=== PATIENT | male | born 1955 | race Caucasian/White ===

== ENCOUNTER 2022-04-29 15:13 | Emergency (ER) | payer OTHER, MEDICAID ==
[~2022-04-29] VITALS: Ht 152.4 cm; Wt 72.6 kg
--- NOTE | 2022-04-29 15:15 | NUR ---
BIBA BLS TO ER BED 12
[2022-04-29 15:19] VITALS: BP 148/64
[2022-04-29 15:56] LABS: BASOPHILS # (AUTO) 0.1 K/uL (0.00-0.22); EOSINOPHILS # (AUTO) 0.2 K/uL (0-0.4); EOSINOPHILS % (AUTO) 3.2 % (0.0-4.0); HEMATOCRIT 39.9 % (36-52); HEMOGLOBIN 13.2 g/dL (12.0-18.0); LYMPHOCYTES # (AUTO) 1.4 K/uL (2.0-11.5); LYMPHOCYTES % (AUTO) 19.5 % (20.5-51.1); MEAN CORPUSCULAR HEMOGLOBIN 32 pg (27-31); MEAN CORPUSCULAR HGB CONC 33 g/dL (33-37); MEAN CORPUSCULAR VOLUME 96.8 fL (80-94); MONOCYTES # (AUTO) 0.5 K/uL (0.8-1.0); MONOCYTES % (AUTO) 7.7 % (1.7-9.3); NEUTROPHILS # (AUTO) 4.8 K/uL (1.8-7.7); NEUTROPHILS % (AUTO) 68.6 % (42.2-75.2); PLATELET COUNT (AUTO) 93 K/uL (140-450); RED BLOOD CELL COUNT(AUTO) 4.12 MIL/uL (4.20-6.10); RED CELL DISTRIBUTION WIDTH 16.8 % (11.6-13.7); WHITE BLOOD COUNT (AUTO) 6.9 K/uL (4.8-10.8)
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
[2022-04-29 17:03] LABS: ALBUMIN 3.8 g/dL (3.4-5.0); ANION GAP 18.4 (8-16); ASPARTATE AMINOTRANSFERASE 42 U/L (15-37); CARBON DIOXIDE 27.1 mmol/L (21-32); CHLORIDE 96 mmol/L (98-107); GFR ARICAN-AMERICAN 7 mL/min (>90); GLUCOSE 156 mg/dL (74-106); POTASSIUM 4.5 mmol/L (3.5-5.1); SODIUM SERUM 137 mmol/L (136-145); TOTAL BILIRUBIN 0.4 mg/dL (0.0-1.0); UREA NITROGEN, BLOOD 44 mg/dL (7-18)
[2022-04-29 17:13] LABS: CREATININE 9.7 mg/dL (0.6-1.3)
[2022-04-29] MEDS ORDERED: LID5T TP (17:25)
[2022-04-29 17:27] VITALS: BP 147/63
--- NOTE | 2022-04-29 17:36 | NUR ---
PT REQUESTING UBER, HOUSE SUP AWARE
--- NOTE | 2022-04-29 17:44 | NUR ---
Patient discharged with v/s stable. Written and verbal after care instructions for lidocaine patches given and explained. Patient alert, oriented and verbalized understanding of instructions. Ambulatory with steady gait. All questions addressed prior to discharge. ID band removed. Patient advised to follow up with PMD. Rx of lidocaine patches given. Patient educated on indication of medication including possible reaction and side effects. Opportunity to ask questions provided and answered.
== END 2022-04-29 17:45 | disposition home or self-care (01) ==
LOC: MED 15:13
DX: S22.080A Wedge compression fracture of T11-T12 vertebra, initial encounter for closed fracture (principal); S00.03XA Contusion of scalp, initial encounter; I12.0 Hypertensive chronic kidney disease with stage 5 chronic kidney disease or end stage renal disease; N18.6 End stage renal disease; Z99.2 Dependence on renal dialysis; Z90.49 Acquired absence of other specified parts of digestive tract; Z79.899 Other long term (current) drug therapy; W01.198A Fall on same level from slipping, tripping and stumbling with subsequent striking against other object, initial encounter; Y92.89 Other specified places as the place of occurrence of the external cause; Y93.89 Activity, other specified; Y99.8 Other external cause status
CPT/HCPCS: 36415; 70450; 71045; 72125; 72131; 80053; 84484; 85025; 93005; 99285; Q0092

== ENCOUNTER 2022-11-09 15:25 | Emergency (ER) | payer OTHER ==
[~2022-11-09] VITALS: Ht 152.4 cm; Wt 77.1 kg
[~2022-11-09 15:25] MED LIST: LID5T TP
[2022-11-09 15:51] VITALS: BP 210/104
--- NOTE | 2022-11-09 16:31 | NUR ---
UNRULY ALS TO ER BED 3
--- NOTE | 2022-11-09 16:33 | NUR ---
VAMSI BRANDON, OFFICER MILLIE, REPORT #[phone]
--- NOTE | 2022-11-09 16:34 | NUR ---
Patient ambulated to bed 03 with steady/even gait.
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
--- NOTE | 2022-11-09 16:40 | NUR ---
Patient to CT via gurney.
--- NOTE | 2022-11-09 16:50 | NUR ---
Pt returned from Ct via [facility]
--- NOTE | 2022-11-09 18:24 | NUR ---
Tdap consent form signed. Vaccination information sheet given to pt
--- NOTE | 2022-11-09 18:29 | NUR ---
Patient signed consent form; refusing Tdap vaccination at this time. No reason given.
[2022-11-09] MEDS ORDERED: IBUP-1842 PO (18:40)
[2022-11-09] MEDS ORDERED: AMOX-999 PO (18:40)
[2022-11-09] MEDS ORDERED: SUD30 PO (18:40)
[2022-11-09 19:16] VITALS: BP 189/99
--- NOTE | 2022-11-09 19:28 | NUR ---
Patient discharged with v/s stable. Written and verbal after care instructions given and explained for Zygoma Fracture. Patient alert, oriented and verbalized understanding of instructions. Ambulatory with steady gait. All questions addressed prior to discharge. ID band removed. Patient advised to follow up with PMD. Rx of Motrin, Augmentin, Sudafed given. Patient educated on indication of medication including possible reaction and side effects. Opportunity to ask questions provided and answered. Copies of CT results given to patient.
[2022-11-10] MEDS ORDERED: AMOX-1230 PO (18:16)
== END 2022-11-09 19:28 | disposition home or self-care (01) ==
LOC: MED 15:25
DX: S02.40DA Maxillary fracture, left side, initial encounter for closed fracture (principal); S02.40CA Maxillary fracture, right side, initial encounter for closed fracture; I12.0 Hypertensive chronic kidney disease with stage 5 chronic kidney disease or end stage renal disease; N18.6 End stage renal disease; Z99.2 Dependence on renal dialysis; Z98.890 Other specified postprocedural states; Z79.899 Other long term (current) drug therapy; Z79.1 Long term (current) use of non-steroidal anti-inflammatories (NSAID); Z79.2 Long term (current) use of antibiotics; Y08.89XA Assault by other specified means, initial encounter; Y93.89 Activity, other specified; Y92.89 Other specified places as the place of occurrence of the external cause; Y99.8 Other external cause status
CPT/HCPCS: 70450; 70486; 72125; 90715; 99284

== ENCOUNTER 2022-11-10 03:16 | Emergency (ER) | payer OTHER ==
[~2022-11-10] VITALS: Ht 152.4 cm; Wt 72.6 kg
[~2022-11-10 03:16] MED LIST changes: +AMOX-999 PO; +IBUP-1842 PO; +SUD30 PO
[2022-11-10 03:23] VITALS: BP 185/93
--- NOTE | 2022-11-10 03:33 | NUR ---
PT UNRULY LOAIZA. TAKEN TO BED 12
[2022-11-10] MEDS ORDERED: PHENYLEPHRINE 0.5% 15 ML BTL NS ONE (03:35)
[2022-11-10] MEDS ORDERED: TRANEXAMIC ACID 1,000 MG/10 ML VIAL MC ONE (03:35)
[2022-11-10 03:45] VITALS: BP 185/93
--- NOTE | 2022-11-10 04:55 | NUR ---
DR. MEHTA TO BED FOR EXAM. PT NOT IN ROOM. ATTEMPTED TO FIND THE PT IN LOBBY, OUTSIDE AND KNOCKING ON BATHROOM DOOR. PT NOT AVAILABLE. PT NOT ANSWERING.
--- NOTE | 2022-11-10 05:00 | NUR ---
PATIENT LEFT WITHOUT BEING SEEN BY DR. MEHTA. NO FURTHER CARE PROVIDED FOR PATIENT.
[2022-11-10] MEDS ORDERED: AMOX-1230 PO (18:16)
== END 2022-11-10 05:00 | disposition left against medical advice (07) ==
LOC: MED 03:16
DX: R04.0 Epistaxis (principal); Z53.21 Procedure and treatment not carried out due to patient leaving prior to being seen by health care provider
CPT/HCPCS: 99281; J3490

== ENCOUNTER 2022-11-10 15:18 | Emergency (ER) | payer OTHER ==
[~2022-11-10] VITALS: Ht 165.1 cm; Wt 81.6 kg
[2022-11-10 15:19] VITALS: BP 179/84
--- NOTE | 2022-11-10 15:24 | NUR ---
PT MOVED TO BED 07 BY [facility]
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
[2022-11-10] MEDS ORDERED: TRANEXAMIC ACID 1,000 MG/10 ML VIAL MC ONE (15:50)
--- NOTE | 2022-11-10 16:14 | NUR ---
NOTED LARGE CLOT IN THE RIGHT NARE, DR ORTEGA MADE AWARE, PT AWAKE AND VERBALLY RESPONSIVE. RECIEVED ORDERS, CONTINUE PLAN OF CARE
--- NOTE | 2022-11-10 16:24 | NUR ---
DR ORTEGA AT BEDSIDE.
[2022-11-10 16:45] VITALS: BP 151/73
[2022-11-10] MEDS ORDERED: AMOX-1230 PO (18:16)
== END 2022-11-10 18:30 | disposition home or self-care (01) ==
LOC: MED 15:18
DX: R04.0 Epistaxis (principal); I10 Essential (primary) hypertension; N18.9 Chronic kidney disease, unspecified; Z79.899 Other long term (current) drug therapy
CPT/HCPCS: 30901; 99284; J3490

== ENCOUNTER 2022-11-12 17:02 | Inpatient (IN) | payer OTHER ==
[~2022-11-12] VITALS: Ht 160 cm; Wt 69.4 kg
[~2022-11-12 17:02] MED LIST changes: +AMOX-1230 PO
[2022-11-12 17:38] VITALS: BP 175/74
[2022-11-12 18:30] LABS: BASOPHILS # (AUTO) 0.1 K/uL (0.00-0.22); BASOPHILS % (AUTO) 2.2 % (0.0-2.0); EOSINOPHILS # (AUTO) 0.2 K/uL (0-0.4); HEMATOCRIT 22.1 % (36-52); HEMOGLOBIN 7.6 g/dL (12.0-18.0); LYMPHOCYTES # (AUTO) 1.2 K/uL (2.0-11.5); LYMPHOCYTES % (AUTO) 21.3 % (20.5-51.1); MEAN CORPUSCULAR HEMOGLOBIN 33 pg (27-31); MEAN CORPUSCULAR HGB CONC 34 g/dL (33-37); MONOCYTES # (AUTO) 0.3 K/uL (0.8-1.0); MONOCYTES % (AUTO) 5.3 % (1.7-9.3); NEUTROPHILS # (AUTO) 3.7 K/uL (1.8-7.7); NEUTROPHILS % (AUTO) 67.2 % (42.2-75.2); PLATELET COUNT (AUTO) 134 K/uL (140-450); RED BLOOD CELL COUNT(AUTO) 2.27 MIL/uL (4.20-6.10); RED CELL DISTRIBUTION WIDTH 16.2 % (11.6-13.7); WHITE BLOOD COUNT (AUTO) 5.5 K/uL (4.8-10.8)
[2022-11-12 18:46] LABS: ALBUMIN 3.8 g/dL (3.4-5.0); ANION GAP 30.5 (8-16); CARBON DIOXIDE 19.1 mmol/L (21-32); TOTAL BILIRUBIN 0.9 mg/dL (0.0-1.0)
[2022-11-12 18:56] LABS: CREATININE 15.9 mg/dL (0.6-1.3)
[2022-11-12 19:01] LABS: POTASSIUM 6.6 mmol/L (3.5-5.1)
[2022-11-12] MEDS ORDERED: ALBUTEROL 0.083% 2.5 MG/3 ML NEBU INH ONE (20:00)
[2022-11-12] MEDS ORDERED: CALCIUM CHLORIDE 10% 100 MG/ML SYR IVP ONE (20:00)
[2022-11-12] MEDS ORDERED: SODIUM POLYSTYRENE 15 GM/60 ML UDBTL PO ONE (20:00)
[2022-11-12] MEDS ORDERED: ONDANSETRON 4 MG/2 ML VIAL IVP ONE (20:05)
--- NOTE | 2022-11-12 20:05 | NUR ---
PT AMBULATES TO BED #9
--- NOTE | 2022-11-12 20:09 | NUR ---
PT AND FAMILY UPDATED ON POC WITH FULL RETURNED VERBAL UNDERSTANDING. PT PLACED IN GOWN, PUT ON C-MONITOR. ERT AT BEDSIDE DOING EKG. PLAN FOR ADMISSION. WILL FOLLOW THROUGH WITH ALL CURRENT ORDERS.
--- NOTE | 2022-11-12 20:55 | NUR ---
DAUGHTER TO BEDSIDE. UPDATED ON POC WITH FULL RETURNED VERBAL UNDERSTANDING. ATTEMPTED TO GET A LIST OF HOME MEDICATIONS. FAMILY WILL BRING IN AM. UNABLE TO REMEMBER MEDICATIONS. LARRY VANEGAS [phone]
--- NOTE | 2022-11-12 23:35 | NUR ---
REPORT AND CARE GIVEN TO BELLE RN WITH FULL RETURNED VERBAL UNDERSTANDING. PT GOING TO 118
--- NOTE | 2022-11-12 23:40 | NUR ---
Patient will be admitted to care of NATHAN. Admited to TELEMETRY. Will go to room 118. Belongings list completed. Report to BELLE ALEXANDER.
[2022-11-12 23:47] VITALS: BP 170/72
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
[2022-11-13 04:00] VITALS: BP 153/68
--- NOTE | 2022-11-13 04:00 | NUR ---
NS TO RAC 20 G, 100ML/H. PT CONTINUES TO REST WITHOUT C/C
--- NOTE | 2022-11-13 07:05 | NUR ---
TEXT TO MD EVANS FOR ORDER FOR PRN PAIN MED FOR RIGHT NARE DISCOMFORT.
[2022-11-13 07:14] LABS: BASOPHILS # (AUTO) 0.1 K/uL (0.00-0.22); BASOPHILS % (AUTO) 1.1 % (0.0-2.0); EOSINOPHILS # (AUTO) 0.2 K/uL (0-0.4); EOSINOPHILS % (AUTO) 4.2 % (0.0-4.0); LYMPHOCYTES # (AUTO) 1.1 K/uL (2.0-11.5); LYMPHOCYTES % (AUTO) 24.3 % (20.5-51.1); MEAN CORPUSCULAR HEMOGLOBIN 33 pg (27-31); MEAN CORPUSCULAR HGB CONC 34 g/dL (33-37); MEAN CORPUSCULAR VOLUME 97.3 fL (80-94); MONOCYTES # (AUTO) 0.2 K/uL (0.8-1.0); MONOCYTES % (AUTO) 4.5 % (1.7-9.3); NEUTROPHILS # (AUTO) 2.9 K/uL (1.8-7.7); NEUTROPHILS % (AUTO) 65.9 % (42.2-75.2); PLATELET COUNT (AUTO) 114 K/uL (140-450); RED BLOOD CELL COUNT(AUTO) 2.03 MIL/uL (4.20-6.10); RED CELL DISTRIBUTION WIDTH 16.3 % (11.6-13.7)
[2022-11-13 07:18] LABS: HEMATOCRIT 19.7 % (36-52); HEMOGLOBIN 6.6 g/dL (12.0-18.0)
--- NOTE | 2022-11-13 07:30 | NUR ---
HAND OFF REPORT TO ON-COMING DAY SHIFT RN FOR CONTINUITY OF CARE. ENDORSED AWAITING ORDERS FOR PRN PAIN MED FROM NATHAN.
[2022-11-13 07:34] LABS: WHITE BLOOD COUNT (AUTO) 4.4 K/uL (4.8-10.8)
[2022-11-13 07:56] LABS: ANION GAP 30.5 (8-16); CARBON DIOXIDE 17.1 mmol/L (21-32)
[2022-11-13 08:00] VITALS: BP 137/71
[2022-11-13 08:07] LABS: CREATININE 16.6 mg/dL (0.6-1.3); POTASSIUM 6.6 mmol/L (3.5-5.1)
[2022-11-13] MEDS: NACL 0.9% 1,000 ML IV SCH ×3 (09:10→18:57)
--- NOTE | 2022-11-13 09:18 | NUR ---
PATIENT HAS BEEN SCREENED AND CATEGORIZED MODERATE NUTRITION RISK. PATIENT WILL BE SEEN WITHIN 3-5 DAYS OF ADMISSION. REVIEWED BY LAVELL RED RD
--- NOTE | 2022-11-13 10:30 | NUR ---
got an order from Md Lovell nephrology consult for hemodialysis . the rn also acquired consent
[2022-11-13] MEDS ORDERED: POTASSIUM CHLORIDE 10 MEQ TABER PO PRN (11:00)
[2022-11-13] MEDS ORDERED: LORazepam 2 MG/ML VIAL IVP PRN (11:00)
[2022-11-13] MEDS ORDERED: MAG SULF 2000 MG/WATER PREMIX 50 ML IV PRN (11:00)
--- NOTE | 2022-11-13 11:30 | NUR ---
got an order for blood transfusion for a hemoglobin of 6.6 . it will be transfue with hemodialysis
[2022-11-13 11:54] LABS: PROTHROMBIN TIME 9.9 secs (10.8-13.4)
[2022-11-13 12:00] VITALS: BP 177/73
[2022-11-13 12:54] LABS: IRON, SERUM 69 ug/dl (50-175); TOTAL IRON BINDING CAPACITY 225 ug/dl (250-450)
--- NOTE | 2022-11-13 14:24 | NUR ---
DC PLANNING SW ATTEMPTED TO MEET AT BEDSIDE TO COMPLETE ASSESSMENT. PT PRIMARILY GREEK SPEAKING THEREFORE, RAZOR GRINDER UTILIZED, SAKINA [phone]. PT STRUGGLED TO STAY AWAKE AND ANSWER QUESTIONS. SW REQUESTED PERMISSION TO OUTREACH TO JYOTHI, PT PROVIDED PERMISSION. 1350: OUTREACHED TO JYOTHI, HOWEVER, NO ANSWER. MESSAGE LEFT REQUESTING A RETURN PHONE CALL.
[2022-11-13] MEDS: ACETAMINOPHEN 325 MG TAB PO SCH ×3 (15:35→20:00)
[2022-11-13] MEDS: FUROSEMIDE 20 MG TAB PO SCH ×2 (15:40→18:56)
[2022-11-13] MEDS: LORazepam 1 MG TAB PO SCH ×2 (15:41→20:40)
[2022-11-13] MEDS ORDERED: ACETAMINOPHEN 325 MG TAB PO PRN (16:10)
[2022-11-13] MEDS ORDERED: ONDANSETRON 4 MG/2 ML VIAL IVP PRN (16:10)
[2022-11-13] MEDS ORDERED: HYDROcodone/APAP 7.5/325 MG 1 TAB PO PRN (16:10)
[2022-11-13 18:00] VITALS: BP 163/91
--- NOTE | 2022-11-13 18:10 | NUR ---
receive the patient from the fast food shift supervisor in rm 118 aox3 with admitting diagnosis of anemia . will continue to monitor
[2022-11-13 18:57] LABS: AMYLASE 84 U/L (25-115); CHOL/HDL RATIO 1.8 (1-4.5); FREE T4 (FREE THYROXINE) 1.31 ng/dL (0.76-1.46); HDL CHOLESTEROL 48 mg/dL (40-60); LDL (CALC) -1 mg/dL (60-100); LIPASE 169 U/L (73-393); MAGNESIUM 1.9 mg/dL (1.8-2.4); THYROID STIMULATING HORMONE 4.41 uIU/mL (0.34-3.74); TRIGLYCERIDES 199 mg/dL (30-150)
--- NOTE | 2022-11-13 19:07 | NUR ---
will endorse to overnight babysitter rn for continuity of care
--- NOTE | 2022-11-13 19:10 | NUR ---
RECEIVED PATIENT LYING ON THE BED, IN NO ACUTE DISTRESS, DENIES PAIN, IS ALERT AND ORIENTED. NO BLEEDING NOTED ON [facility] ACCESS SITE, ALL SAFETY MEASURES IN PLACE.
[2022-11-13 20:00] VITALS: BP 165/69
[2022-11-13] MEDS: DOCUSATE SODIUM 100 MG GELCAP PO SCH (20:40)
--- NOTE | 2022-11-13 20:40 | NUR ---
SCHEDULED MEDICATIONS GIVEN ORDERED.
[2022-11-13 21:40] LABS: PROTHROMBIN TIME 9.9 secs (10.8-13.4)
[2022-11-14] VITALS: BP 157/76
--- NOTE | 2022-11-14 00:10 | NUR ---
VITALS TAKEN T 97.0, P 87, BP 157/76, RESP 18 AND O2 SATS 97% ON ROOM AIR. PATIENT DENIES PAIN, NO SIGNS OF DISTRESS NOTED, CALL LIGHT WITHIN REACH.
--- NOTE | 2022-11-14 03:00 | NUR ---
HAND-OFF REPORT FROM PRIMARY NURSE SHE RECEIVES SHE RECEIVES AN ADMISSION. PT REMAINS SLEEPING. ASSIST NEEDED. OTHERWISE ALLOW TO SLEEP.
[2022-11-14 04:00] VITALS: BP 152/68
[2022-11-14] MEDS: NACL 0.9% 1,000 ML IV SCH ×2 (04:00→13:35)
--- NOTE | 2022-11-14 04:30 | NUR ---
PT DID NOT AROUSE TO NAME. ALLOW TO SLEEP. ATIVAN NOT ADMINISTERED.
[2022-11-14] MEDS: LORazepam 1 MG TAB PO SCH ×3 (05:00→20:37)
--- NOTE | 2022-11-14 07:05 | NUR ---
receive paulo palmer from the student affairs dean rn in rm 18 aox3 with admitting diagnosis of anemia . will continue to monitor .
[2022-11-14 07:22] LABS: BASOPHILS % (AUTO) 0.8 % (0.0-2.0); EOSINOPHILS % (AUTO) 0.9 % (0.0-4.0); HEMATOCRIT 24.4 % (36-52); HEMOGLOBIN 8.3 g/dL (12.0-18.0); LYMPHOCYTES # (AUTO) 0.7 K/uL (2.0-11.5); LYMPHOCYTES % (AUTO) 15.7 % (20.5-51.1); MEAN CORPUSCULAR HEMOGLOBIN 31 pg (27-31); MEAN CORPUSCULAR HGB CONC 34 g/dL (33-37); MEAN CORPUSCULAR VOLUME 90.6 fL (80-94); MONOCYTES # (AUTO) 0.2 K/uL (0.8-1.0); MONOCYTES % (AUTO) 4.6 % (1.7-9.3); NEUTROPHILS # (AUTO) 3.5 K/uL (1.8-7.7); PLATELET COUNT (AUTO) 112 K/uL (140-450); RED BLOOD CELL COUNT(AUTO) 2.69 MIL/uL (4.20-6.10); RED CELL DISTRIBUTION WIDTH 20.3 % (11.6-13.7); WHITE BLOOD COUNT (AUTO) 4.5 K/uL (4.8-10.8)
--- NOTE | 2022-11-14 07:30 | NUR ---
HAND-OFF REPORT TO RETURNING NURSE LANE.
[2022-11-14 07:40] LABS: ANION GAP 19.5 (8-16); CARBON DIOXIDE 29.6 mmol/L (21-32); POTASSIUM 4.1 mmol/L (3.5-5.1)
[2022-11-14 07:41] LABS: PHOSPHORUS 8.6 mg/dL (2.5-4.9)
[2022-11-14 07:56] LABS: CREATININE 9.4 mg/dL (0.6-1.3)
[2022-11-14 08:00] VITALS: BP 159/77
[2022-11-14 09:06] LABS: FOLIC ACID 12.3 ng/mL (>3.0)
--- NOTE | 2022-11-14 09:20 | NUR ---
abdominal ultrasound was done . tolerated the procedure
[2022-11-14] MEDS: DOCUSATE SODIUM 100 MG GELCAP PO SCH ×2 (09:44→20:37)
[2022-11-14] MEDS: THIAMINE 100 MG TAB PO SCH (09:44)
[2022-11-14] MEDS: PANTOPRAZOLE 40 MG INJ VIAL IVP SCH (09:44)
[2022-11-14] MEDS: MULTIVITAMIN 1 TAB PO SCH (09:44)
[2022-11-14] MEDS: FOLIC ACID 1 MG TAB PO SCH (09:45)
[2022-11-14 12:00] VITALS: BP 132/60
[2022-11-14 16:00] VITALS: BP 155/66
--- NOTE | 2022-11-14 17:40 | NUR ---
P.T. NOTES P.T. EVAL COMPLETED; REFER TO EVAL FOR DETAILS.
--- NOTE | 2022-11-14 19:05 | NUR ---
will endorse to slot shift supervisor rn for continuity care . for hemodialysis
--- NOTE | 2022-11-14 19:10 | NUR ---
RECEIVED REPORT FROM DAY SHIFT NURSE LANE FOR CONTINUITY OF CARE. PT AWAKE SITTING AT BEDSIDE CHAIR WITH DAUGHTER AT BEDSIDE. RESPIRATIONS EVEN AND UNLABORED ON RA. NOTED ROCKET DRESSING-RIGHT NARES. IVF INFUSING TO RFA. POC DISCUSSED WITH PT AND BENJAMIN MATHIS. CALL LIGHT WITHIN REACH. SAFETY PRECAUTIONS IN PLACE.
[2022-11-14 20:00] VITALS: BP 136/63
--- NOTE | 2022-11-14 20:40 | NUR ---
ADMINISTERED DUE MEDS. PT TOLERATED WELL.
--- NOTE | 2022-11-14 20:47 | NUR ---
PT COMPLAINED OF 6/10 PAIN ON HIS FACE. PRN PAIN MED GIVEN. V/S WITHIN NORMAL LIMITS.
[2022-11-15] MEDS: NACL 0.9% 1,000 ML IV SCH (00:20)
[2022-11-15 04:00] VITALS: BP 136/63
[2022-11-15] MEDS: LORazepam 1 MG TAB PO SCH ×2 (04:39→13:00)
--- NOTE | 2022-11-15 04:39 | NUR ---
NON-ADMIT SCHEDULED ATIVAN. PT DEEPLY SLEEPING. TRIED TO WAKE UP, JUST OPENED EYES AND WENT BACK TO SLEEP. RESPIRATIONS EVEN AND UNLABORED. NO DISTRESS NOTED.
[2022-11-15 07:03] LABS: BASOPHILS % (AUTO) 0.8 % (0.0-2.0); EOSINOPHILS # (AUTO) 0.1 K/uL (0-0.4); EOSINOPHILS % (AUTO) 3.5 % (0.0-4.0); HEMATOCRIT 22.2 % (36-52); HEMOGLOBIN 7.6 g/dL (12.0-18.0); LYMPHOCYTES # (AUTO) 0.9 K/uL (2.0-11.5); MEAN CORPUSCULAR HEMOGLOBIN 32 pg (27-31); MEAN CORPUSCULAR HGB CONC 34 g/dL (33-37); MONOCYTES # (AUTO) 0.3 K/uL (0.8-1.0); MONOCYTES % (AUTO) 7.4 % (1.7-9.3); NEUTROPHILS # (AUTO) 2.4 K/uL (1.8-7.7); NEUTROPHILS % (AUTO) 63.3 % (42.2-75.2); PLATELET COUNT (AUTO) 104 K/uL (140-450); RED BLOOD CELL COUNT(AUTO) 2.41 MIL/uL (4.20-6.10); RED CELL DISTRIBUTION WIDTH 19.2 % (11.6-13.7); WHITE BLOOD COUNT (AUTO) 3.8 K/uL (4.8-10.8)
--- NOTE | 2022-11-15 07:04 | NUR ---
ASSUMED CONTINUITY OF CARE. INITIAL ASSESSMENT DONE. KEEP COMFORTABLE ON BED. FALL PRECAUTION APPLIED. CALL LIGHT WITHIN REACH.
--- NOTE | 2022-11-15 07:04 | NUR ---
GAVE BEDSIDE REPORT TO JUNIOR NOEL. PT IS STABLE.
[2022-11-15 07:10] LABS: ANION GAP 16.8 (8-16); CARBON DIOXIDE 29.3 mmol/L (21-32); POTASSIUM 4.1 mmol/L (3.5-5.1)
[2022-11-15 07:23] LABS: CREATININE 11.6 mg/dL (0.6-1.3)
[2022-11-15 07:28] LABS: MAGNESIUM 2.1 mg/dL (1.8-2.4); PHOSPHORUS 8.8 mg/dL (2.5-4.9)
[2022-11-15 08:00] VITALS: BP 134/86
[2022-11-15] MEDS ORDERED: EPOETIN ALFA-EPBX 10,000 UNITS/ML VIAL SUBQ SCH (09:00)
--- NOTE | 2022-11-15 09:17 | NUR ---
HD NURSE CAME FOR PT. HD SCHEDULE TODAY. SCHEDULE MEDS WILL BE PUT ON HOLD UNTIL AFTER HD IS DONE.
--- NOTE | 2022-11-15 12:10 | NUR ---
HD NURSE REPORTED THAT HD IS DONE AND OUTPUT WAS 3 LITER. INFORMED CHARGE NURSE JANETTE GARCIA.
[2022-11-15] MEDS: THIAMINE 100 MG TAB PO SCH (12:22)
[2022-11-15] MEDS: FOLIC ACID 1 MG TAB PO SCH (12:22)
[2022-11-15] MEDS: DOCUSATE SODIUM 100 MG GELCAP PO SCH (12:22)
[2022-11-15] MEDS: MULTIVITAMIN 1 TAB PO SCH (12:23)
[2022-11-15] MEDS: PANTOPRAZOLE 40 MG INJ VIAL IVP SCH (12:32)
--- NOTE | 2022-11-15 13:45 | NUR ---
CALLED PT. DAUGHTER JYOTHI RAMOS AT LEFT MESSAGE AND CALL BACK NUMBER REGARDING PT. D/C. INFORMED CHARGE NURSE JANETTE GARCIA.
--- NOTE | 2022-11-15 14:15 | NUR ---
D/C RHINO ROCKET ON RIGHT NOSTRIL PER MD ORDER WITH ASSISTANCE FROM CHARGE NURSE JANETTE GARCIA. TOLERATED WELL. NO BLEEDING NOTED. WILL MONITOR.
--- NOTE | 2022-11-15 14:55 | NUR ---
CALLED PT. DAUGHTER JYOTHI RAMOS AT FOR THE SECOND TIME. INFORMED HER ABOUT PT. D/C HOME. 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 INFORMED CHARGE NURSE JANETTE GARCIA.
--- NOTE | 2022-11-15 15:46 | NUR ---
11/15/22 RD INITIAL ASSESSMENT COMPLETED PLEASE REFER TO NUTRITION ASSESSMENT UNDER CARE ACTIVITY FOR ESTIMATED NUTRITIONAL NEEDS. 1. RECOMMEND RENAL DIET TOLERATED 2. PROVIDED NUTRITION EDUCATION AND HANDOUTS FOR RENAL DIET, ESRD 3. MONITOR PO INTAKE AND NUTRITION RELATED LAB VALUES 4. RD TO FOLLOW-UP 7 DAYS, LOW RISK REVIEWED BY LAVELL RED RD
[2022-11-15 16:00] VITALS: BP 127/92
--- NOTE | 2022-11-15 18:20 | NUR ---
PT. DAUGHTER JYOTHI RAMOS CALLED AND SAID THAT SHE'LL BE ARRIVING IN 30 MINUTES. INFORMED CHARGE NURSE -JANETTE GARCIA.
--- NOTE | 2022-11-15 19:25 | NUR ---
D/C HOME VIA WHEELCHAIR ACCOMPANIED BY PT. DAUGHTER -JYOTHI. IN STABLE CONDITION. INFORMED CHARGE NURSE JANETTE GARCIA.
== END 2022-11-15 19:25 | disposition home or self-care (01) | DRG 640 ==
LOC: MED 17:02 → MTU 21:44
PROC: 5A1D70Z Performance of Urinary Filtration, Intermittent, Less than 6 Hours Per Day (ICD-10-PCS; principal; 2022-11-13)
PROC: 5A1D70Z Performance of Urinary Filtration, Intermittent, Less than 6 Hours Per Day (ICD-10-PCS; 2022-11-15)
DX: E87.5 Hyperkalemia (principal); N17.0 Acute kidney failure with tubular necrosis; N18.6 End stage renal disease; I12.0 Hypertensive chronic kidney disease with stage 5 chronic kidney disease or end stage renal disease; E87.20 Acidosis, unspecified; F03.90 Unspecified dementia, unspecified severity, without behavioral disturbance, psychotic disturbance, mood disturbance, and anxiety; E78.00 Pure hypercholesterolemia, unspecified; R04.0 Epistaxis; D69.6 Thrombocytopenia, unspecified; F10.129 Alcohol abuse with intoxication, unspecified; Z20.822 Contact with and (suspected) exposure to COVID-19; Y90.9 Presence of alcohol in blood, level not specified; D63.8 Anemia in other chronic diseases classified elsewhere; E83.39 Other disorders of phosphorus metabolism; N28.1 Cyst of kidney, acquired; E11.22 Type 2 diabetes mellitus with diabetic chronic kidney disease; K70.9 Alcoholic liver disease, unspecified; Z79.1 Long term (current) use of non-steroidal anti-inflammatories (NSAID); Z79.899 Other long term (current) drug therapy; Z99.2 Dependence on renal dialysis; Z90.49 Acquired absence of other specified parts of digestive tract
CPT/HCPCS: 36415; 71045; 76700; 80048; 80053; 82140; 82150; 82607; 82728; 82746; 83036; 83540; 83605; 83690; 83735; 83880; 84100; 84439; 84443; 84484; 85025; 85045; 85610; 85730; 86886; 86900; 86901; 86920; 87040; 87081; 93005; 94640; 96374; 96375; 99291; C9113; G0482; J2405; J7613; Q0092; Q0163; Q5106

== ENCOUNTER 2023-08-02 15:01 | Emergency (ER) | payer OTHER ==
[~2023-08-02] VITALS: Ht 152.4 cm; Wt 73.9 kg
[2023-08-02 15:25] VITALS: BP 186/78; PULSE 71; RESP 20; TEMP 98.3; O2SAT 99
== END 2023-08-02 16:40 | disposition left against medical advice (07) ==
LOC: MED 15:01
DX: I12.0 Hypertensive chronic kidney disease with stage 5 chronic kidney disease or end stage renal disease (principal); N18.6 End stage renal disease; Z99.2 Dependence on renal dialysis; Z53.21 Procedure and treatment not carried out due to patient leaving prior to being seen by health care provider
CPT/HCPCS: 99281

== ENCOUNTER 2023-09-14 11:20 | Emergency (ER) | payer OTHER ==
[~2023-09-14] VITALS: Ht 153.7 cm; Wt 79.4 kg
[2023-09-14 12:02] VITALS: BP 136/71; PULSE 65; RESP 15; TEMP 97.8; O2SAT 100
== END 2023-09-14 12:51 | disposition left against medical advice (07) ==
LOC: MED 11:20
DX: R19.09 Other intra-abdominal and pelvic swelling, mass and lump (principal); Z53.21 Procedure and treatment not carried out due to patient leaving prior to being seen by health care provider
CPT/HCPCS: 99281

== ENCOUNTER 2023-11-06 17:44 | Emergency (ER) | payer OTHER ==
[~2023-11-06] VITALS: Ht 165.1 cm; Wt 68.0 kg
[2023-11-06 17:48] VITALS: BP 140/90; PULSE 60; RESP 15; TEMP 98; O2SAT 99
[2023-11-06] MEDS: FLUORESCEIN OPTH STRIP 1 MG OP ONE (19:49)
[2023-11-06] MEDS: TETRACAINE HCL/PF 0.5% OPTH 4 ML BTL OP ONE (19:50)
[2023-11-06] MEDS: amLODIPine 5 MG TAB PO ONE (19:50)
[2023-11-06] MEDS ORDERED: TOMOMETER 1 DEV DEV MC ONE (20:21)
[2023-11-06] MEDS: CLONIDINE HYDROCHLORIDE 0.1 MG TAB PO ONE (20:28)
[2023-11-06] MEDS: carvediloL 6.25 MG TAB PO ONE (21:32)
[2023-11-06] MEDS ORDERED: CARV6.25 PO (21:55)
[2023-11-06] MEDS: ACETAMINOPHEN 325 MG TAB PO ONE (23:33)
[2023-11-06 23:55] LABS: BASOPHILS % (AUTO) 1.2 % (0.0-2.0); EOSINOPHILS # (AUTO) 0.2 K/uL (0-0.4); EOSINOPHILS % (AUTO) 5.5 % (0.0-4.0); HEMATOCRIT 31.3 % (36-52); HEMOGLOBIN 10.8 g/dL (12.0-18.0); LYMPHOCYTES # (AUTO) 0.9 K/uL (2.0-11.5); LYMPHOCYTES % (AUTO) 24.5 % (20.5-51.1); MEAN CORPUSCULAR HEMOGLOBIN 30 pg (27-31); MEAN CORPUSCULAR HGB CONC 34 g/dL (33-37); MEAN CORPUSCULAR VOLUME 87.6 fL (80-94); MONOCYTES # (AUTO) 0.4 K/uL (0.8-1.0); MONOCYTES % (AUTO) 10.2 % (1.7-9.3); NEUTROPHILS # (AUTO) 2.1 K/uL (1.8-7.7); NEUTROPHILS % (AUTO) 58.6 % (42.2-75.2); PLATELET COUNT (AUTO) 102 K/uL (140-450); RED BLOOD CELL COUNT(AUTO) 3.57 MIL/uL (4.20-6.10); RED CELL DISTRIBUTION WIDTH 14.8 % (11.6-13.7); WHITE BLOOD COUNT (AUTO) 3.6 K/uL (4.8-10.8)
[2023-11-07] MEDS: NITROGLYCERIN 0.4 MG TAB SL ONE (00:04)
[2023-11-07 00:14] LABS: ALANINE AMINOTRANSFERASE 16 U/L (12-78); ALBUMIN 3.8 g/dL (3.4-5.0); ALKALINE PHOSPHATASE 158 U/L (50-136); ANION GAP 10.6 (8-16); ASPARTATE AMINOTRANSFERASE 24 U/L (15-37); CARBON DIOXIDE 34.7 mmol/L (21-32); CHLORIDE 96 mmol/L (98-107); GFR ARICAN-AMERICAN 17 mL/min (>90); GFR NON ARICAN-AMERICAN 14 mL/min (>90); GLUCOSE 128 mg/dL (74-106); POTASSIUM 3.3 mmol/L (3.5-5.1); SODIUM SERUM 138 mmol/L (136-145); TOTAL BILIRUBIN 1.1 mg/dL (0.0-1.0); TOTAL PROTEIN, SERUM 7.2 g/dL (6.4-8.2); UREA NITROGEN, BLOOD 21 mg/dL (7-18)
[2023-11-07 00:17] LABS: CREATININE 4.4 mg/dL (0.6-1.3)
[2023-11-07 04:43] VITALS: BP 176/71; PULSE 60; RESP 14; TEMP 97.7; O2SAT 99
== END 2023-11-07 04:43 | disposition home or self-care (01) ==
LOC: MED 17:44
DX: H43.12 Vitreous hemorrhage, left eye (principal); I12.9 Hypertensive chronic kidney disease with stage 1 through stage 4 chronic kidney disease, or unspecified chronic kidney disease; E11.22 Type 2 diabetes mellitus with diabetic chronic kidney disease; N28.9 Disorder of kidney and ureter, unspecified; Z79.4 Long term (current) use of insulin; Z79.899 Other long term (current) drug therapy
CPT/HCPCS: 36415; 71045; 80053; 84484; 85025; 93005; 99285

== ENCOUNTER 2024-01-26 18:33 | Inpatient (IN) | payer OTHER ==
[~2024-01-26] VITALS: Ht 165.1 cm; Wt 73.5 kg
[~2024-01-26 18:33] MED LIST changes: -AMOX-1230 PO; -AMOX-999 PO; +CARV6.25 PO; -IBUP-1842 PO; -LID5T TP; -SUD30 PO
[2024-01-26 18:45] VITALS: BP 144/56; PULSE 75; RESP 18; TEMP 98.2; O2SAT 96
[2024-01-26 19:00] VITALS: O2SAT 100
[2024-01-26 20:12] LABS: BASOPHILS % (AUTO) 1.1 % (0.0-2.0); EOSINOPHILS # (AUTO) 0.2 K/uL (0-0.4); EOSINOPHILS % (AUTO) 4.9 % (0.0-4.0); HEMATOCRIT 28.2 % (36-52); HEMOGLOBIN 9.5 g/dL (12.0-18.0); LYMPHOCYTES % (AUTO) 23.1 % (20.5-51.1); MEAN CORPUSCULAR HEMOGLOBIN 30 pg (27-31); MEAN CORPUSCULAR HGB CONC 34 g/dL (33-37); MEAN CORPUSCULAR VOLUME 88.7 fL (80-94); MONOCYTES # (AUTO) 0.5 K/uL (0.8-1.0); MONOCYTES % (AUTO) 12.4 % (1.7-9.3); NEUTROPHILS # (AUTO) 2.5 K/uL (1.8-7.7); NEUTROPHILS % (AUTO) 58.5 % (42.2-75.2); PLATELET COUNT (AUTO) 108 K/uL (140-450); RED BLOOD CELL COUNT(AUTO) 3.18 MIL/uL (4.20-6.10); RED CELL DISTRIBUTION WIDTH 16.3 % (11.6-13.7); WHITE BLOOD COUNT (AUTO) 4.2 K/uL (4.8-10.8)
[2024-01-26 20:22] LABS: ANION GAP 15.5 (8-16); CARBON DIOXIDE 33.1 mmol/L (21-32); POTASSIUM 4.6 mmol/L (3.5-5.1)
[2024-01-26 20:31] LABS: ALANINE AMINOTRANSFERASE 17 U/L (12-78); ALBUMIN 4.3 g/dL (3.4-5.0); ALKALINE PHOSPHATASE 190 U/L (50-136); ASPARTATE AMINOTRANSFERASE 25 U/L (15-37); BILIRUBIN,DIRECT 0.2 mg/dL (0.0-0.3); TOTAL BILIRUBIN 0.7 mg/dL (0.0-1.0); TOTAL PROTEIN, SERUM 7.8 g/dL (6.4-8.2)
[2024-01-26 20:32] LABS: CREATININE 6.7 mg/dL (0.6-1.3)
[2024-01-26 22:57] VITALS: O2SAT 100
[2024-01-27] VITALS (7 sets, daily range): BP systolic 116–202; BP diastolic 50–81; PULSE 60–78; RESP 16–20; TEMP 97–97.7; O2SAT 95–100
[2024-01-27] MEDS: MORPHINE SULFATE 4 MG/ML SYR IVP ONE (00:46)
[2024-01-27] MEDS ORDERED: ONDANSETRON 4 MG/2 ML VIAL IVP PRN (01:20)
[2024-01-27] MEDS ORDERED: ALBUTEROL 0.083% 2.5 MG/3 ML NEBU INH PRN (01:20)
[2024-01-27] MEDS: NIFEdipine 60 MG TABER PO SCH (05:37)
[2024-01-27] MEDS: ACETAMINOPHEN 325 MG TAB PO PRN (10:11)
[2024-01-27] MEDS: carvediloL 6.25 MG TAB PO SCH (10:11)
[2024-01-27] MEDS ORDERED: DEXTROSE 50% 50 ML SYR IVP PRN (14:40)
[2024-01-27] MEDS: BLOOD GLUCOSE MONITORING 1 DEV DEV FS SCH (18:14)
[2024-01-27] MEDS: MORPHINE SULFATE 2 MG/ML SYR IVP PRN (23:42)
[2024-01-28] VITALS (8 sets, daily range): BP systolic 119–176; BP diastolic 54–82; PULSE 60–78; RESP 17–20; TEMP 96.9–98.2; O2SAT 95–100
[2024-01-28 06:32] LABS: ANION GAP 15.8 (8-16); CALCIUM 8.4 mg/dL (8.5-10.1); CARBON DIOXIDE 29.9 mmol/L (21-32); MAGNESIUM 2.6 mg/dL (1.8-2.4); TOTAL BILIRUBIN 0.9 mg/dL (0.0-1.0); TOTAL PROTEIN, SERUM 7.4 g/dL (6.4-8.2)
[2024-01-28 06:49] LABS: CREATININE 9.3 mg/dL (0.6-1.3); POTASSIUM 5.7 mmol/L (3.5-5.1)
[2024-01-28 07:33] LABS: BASOPHILS % (AUTO) 0.6 % (0.0-2.0); EOSINOPHILS # (AUTO) 0.1 K/uL (0-0.4); EOSINOPHILS % (AUTO) 1.6 % (0.0-4.0); HEMATOCRIT 29.3 % (36-52); HEMOGLOBIN 10.1 g/dL (12.0-18.0); LYMPHOCYTES # (AUTO) 0.6 K/uL (2.0-11.5); LYMPHOCYTES % (AUTO) 7.6 % (20.5-51.1); MEAN CORPUSCULAR HEMOGLOBIN 30 pg (27-31); MEAN CORPUSCULAR HGB CONC 35 g/dL (33-37); MEAN CORPUSCULAR VOLUME 88.2 fL (80-94); MONOCYTES # (AUTO) 0.4 K/uL (0.8-1.0); MONOCYTES % (AUTO) 4.6 % (1.7-9.3); NEUTROPHILS # (AUTO) 6.7 K/uL (1.8-7.7); NEUTROPHILS % (AUTO) 85.6 % (42.2-75.2); PLATELET COUNT (AUTO) 71 K/uL (140-450); RED BLOOD CELL COUNT(AUTO) 3.32 MIL/uL (4.20-6.10); RED CELL DISTRIBUTION WIDTH 15.8 % (11.6-13.7); WHITE BLOOD COUNT (AUTO) 7.8 K/uL (4.8-10.8)
[2024-01-28] MEDS: NIFEdipine 60 MG TABER PO SCH (09:00)
[2024-01-28 16:56] LABS: APPEARANCE,URINE TURBID (CLEAR); BILIRUBIN,URINE NEGATIVE (NEGATIVE); BLOOD, URINE NEGATIVE (NEGATIVE); COLOR,URINE YELLOW (YELLOW); LEUKOCYTE ESTERASE ,URINE NEGATIVE (NEGATIVE); NITRITE, URINE NEGATIVE (NEGATIVE); PH,URINE >=9.0 (5.0-9.0); PROTEIN,URINE 2+ (NEGATIVE); UGLUCOSE 1+ (NEGATIVE); UROBILINOGEN,URINE 0.2 EU/dL (0.2 - 1)
[2024-01-28] MEDS: INSULIN LISPRO SLIDING SCALE 100 UNITS/ML VIAL SUBQ PRN (20:50)
[2024-01-28] MEDS: ZOLPIDEM 5 MG TAB PO PRN (23:51)
[2024-01-29] VITALS (7 sets, daily range): BP systolic 126–168; BP diastolic 52–73; PULSE 65–92; RESP 16–18; TEMP 97.3–98.6; O2SAT 92–98
[2024-01-30] VITALS (8 sets, daily range): BP systolic 110–166; BP diastolic 51–68; PULSE 58–67; RESP 16–18; TEMP 97.6–98.3; O2SAT 93–98
[2024-01-30 06:29] LABS: ANION GAP 15.9 (8-16); CARBON DIOXIDE 26.8 mmol/L (21-32); POTASSIUM 4.7 mmol/L (3.5-5.1)
[2024-01-30 06:32] LABS: CREATININE 6.6 mg/dL (0.6-1.3)
[2024-01-30] MEDS: VIT-B COMP/VIT-C/FOLIC ACID 1 TAB PO SCH (08:28)
[2024-01-30] MEDS: hydrALAZINE 20 MG/ML VIAL IVP PRN (11:44)
[2024-01-31] VITALS (7 sets, daily range): BP systolic 137–176; BP diastolic 53–73; PULSE 60–67; RESP 16–20; TEMP 97.2–98.6; O2SAT 93–98
[2024-01-31] MEDS ORDERED: CARV6.252 PO (15:12)
[2024-01-31] MEDS ORDERED: NIFE60TA39 PO (15:12)
== END 2024-01-31 19:33 | disposition home or self-care (01) | DRG 640 ==
LOC: MED 18:33 → MTU 01-27 01:27
PROVIDERS: ADMIT Hospitalist; ATTEND Hospitalist
PROC: 5A1D70Z Performance of Urinary Filtration, Intermittent, Less than 6 Hours Per Day (ICD-10-PCS; principal; 2024-01-27)
PROC: 5A1D70Z Performance of Urinary Filtration, Intermittent, Less than 6 Hours Per Day (ICD-10-PCS; 2024-01-29)
PROC: 5A1D70Z Performance of Urinary Filtration, Intermittent, Less than 6 Hours Per Day (ICD-10-PCS; 2024-01-30)
DX: E87.70 Fluid overload, unspecified (principal); J96.01 Acute respiratory failure with hypoxia; N18.6 End stage renal disease; I12.0 Hypertensive chronic kidney disease with stage 5 chronic kidney disease or end stage renal disease; E11.22 Type 2 diabetes mellitus with diabetic chronic kidney disease; D63.1 Anemia in chronic kidney disease; Z79.899 Other long term (current) drug therapy
CPT/HCPCS: 36415; 71045; 74018; 80048; 80053; 80076; 81003; 82948; 83690; 83735; 83880; 84100; 84484; 85025; 87081; 90935; 93005; 96374; 99285; J0360; J1815; J2270; Q0092

== ENCOUNTER 2024-04-13 03:19 | Emergency (ER) | payer OTHER ==
[~2024-04-13] VITALS: Ht 167.6 cm; Wt 93.0 kg
[~2024-04-13 03:19] MED LIST changes: -CARV6.25 PO; +CARV6.252 PO; +NIFE60TA39 PO
[2024-04-13 03:27] VITALS: BP 165/74; PULSE 73; RESP 22; TEMP 97.9; O2SAT 98
[2024-04-13] MEDS: MORPHINE SULFATE 4 MG/ML SYR IVP ONE (04:40)
[2024-04-13 04:49] VITALS: TEMP 97.9
[2024-04-13] MEDS: LIDOCAINE MPF 1% 10 MG/ML VIAL INJ ONE (06:11)
[2024-04-13 07:24] VITALS: BP 154/71; PULSE 68; RESP 16
[2024-04-13 08:05] VITALS: O2SAT 98
== END 2024-04-13 09:08 | disposition home or self-care (01) ==
LOC: MED 03:19
DX: S01.81XA Laceration without foreign body of other part of head, initial encounter (principal); H11.32 Conjunctival hemorrhage, left eye; E11.22 Type 2 diabetes mellitus with diabetic chronic kidney disease; I12.0 Hypertensive chronic kidney disease with stage 5 chronic kidney disease or end stage renal disease; N18.6 End stage renal disease; Z99.2 Dependence on renal dialysis; Z79.899 Other long term (current) drug therapy; W01.198A Fall on same level from slipping, tripping and stumbling with subsequent striking against other object, initial encounter; Y93.89 Activity, other specified; Y92.89 Other specified places as the place of occurrence of the external cause; Y99.8 Other external cause status
CPT/HCPCS: 12013; 70450; 70480; 90471; 90715; 96374; 99285; J2001; J2270